=== PATIENT | female | born 1995 | race Two or more races ===

== ENCOUNTER → 2017-01-16 | Outpatient (CLI) | payer OTHER ==
[2017-01-16 11:58] LABS: THYROXINE (T4) 8.1 UG/DL (6.0-11.6)
--- NOTE | 2017-01-16 13:41 | REP ---
PELVIC SONOGRAPHY: HISTORY: Right lower quadrant pain. FINDINGS: Transabdominal and transvaginal scanning are performed. Uterine dimensions are normal at 7.3 x 2.9 x 4.9 cm. Endometrial echo is 1.0 cm thick and centrally placed. No free fluid is seen. Normal ovaries are identified. Right ovary measures 4.4 x 2.0 x 2.4 cm. The left ovary dimensions are 3.3 x 1.7 x 2.2 cm. IMPRESSION: Normal pelvic sonography. Signed by Meliton Kohli MD 01/16/2017 04:26 P
== END ==
LOC: M LRY 08:51
PROVIDERS: ATTEND Nurse Practitioner Women's Health
DX: N92.1 Excessive and frequent menstruation with irregular cycle (principal); R10.31 Right lower quadrant pain

== ENCOUNTER → 2017-02-05 | Outpatient (REF) | payer OTHER | LOC: M SFHCLERA 13:50 | PROVIDERS: ATTEND Nurse Practitioner Family | DX: R39.9 Unspecified symptoms and signs involving the genitourinary system (principal) ==

== ENCOUNTER → 2017-03-05 | Outpatient (REF) | payer OTHER | LOC: M SFHCLERA 12:15 | PROVIDERS: ATTEND Physician Assistant | DX: R30.0 Dysuria (principal) ==